=== PATIENT | female | born 1990 | race Caucasian/White ===

== ENCOUNTER 2017-01-30 10:30 | Observation (INO) | payer MEDICAID ==
[~2017-01-30] VITALS: Ht 160 cm; Wt 81.6 kg
[2017-01-30] MEDS ORDERED: FERR325T6 PO (11:20)
[2017-01-30] MEDS ORDERED: PREN1TAB78 PO (11:20)
== END 2017-01-30 11:45 | disposition home or self-care (01) ==
LOC: L&D 10:30
PROVIDERS: ADMIT Obstetrics & Gynecology Obstetrics; ATTEND Obstetrics & Gynecology
DX: O26.893 Other specified pregnancy related conditions, third trimester (principal); R10.9 Unspecified abdominal pain; Z3A.40 40 weeks gestation of pregnancy
CPT/HCPCS: 59025; 76815; 76818; G0378

== ENCOUNTER 2017-02-02 17:14 | Inpatient (IN) | payer MEDICAID ==
[~2017-02-02] VITALS: Ht 154.9 cm; Wt 80.3 kg
[~2017-02-02 17:14] MED LIST: FERR325T6 PO; PREN1TAB78 PO
[2017-02-02] MEDS ORDERED: NALOXONE HCL 0.4 MG/ML 1ML VIAL IM PRN (17:45)
[2017-02-02] MEDS ORDERED: BUTORPHANOL TARTRATE 2 MG/ML VIAL IV PRN (17:45)
[2017-02-02] MEDS ORDERED: LIDOCAINE HCL 1% 20ML VIAL (Pyxis) INJ INFIL PRN (17:45)
[2017-02-02] MEDS ORDERED: MISOPROSTOL 100MCG TABLET VG PRN (17:45)
[2017-02-02] MEDS ORDERED: METHYLERGONOVINE MALEATE 0.2 MG/ML IM PRN (17:45)
[2017-02-02 18:08] LABS: CLARITY URINE CLEAR (CLEAR); COLOR URINE YELLOW (YELLOW); GLUCOSE URINE NEGATIVE (NEGATIVE); KETONES URINE NEGATIVE (NEGATIVE); LEUKOCYTE ESTERASE URINE NEGATIVE (NEGATIVE); NITRITE URINE NEGATIVE (NEGATIVE); OCCULT BLOOD URINE TRACE (NEGATIVE); PH URINE 6.5 (4.5-8.0); PROTEIN URINE NEGATIVE (NEGATIVE); SPECIFIC GRAVITY URINE 1.006 (1.005-1.030); UROBILINOGEN URINE 0.2 E.U./dL (0.2-1.0)
[2017-02-02] MEDS: LACTATED RINGERS 1,000 ML IV SCH ×2 (18:10→18:37)
[2017-02-02 18:13] LABS: BASOPHILS % 0.3 % (0.0-2.0); EOSINOPHILS % 0.8 % (0.0-5.0); HEMATOCRIT. 35.5 % (36.0-48.0); HEMOGLOBIN. 12.2 g/dL (12.0-16.0); MEAN CORPUSCULAR HEMOGLOBIN 30.3 pg (28.0-32.0); MONOCYTES % 6.8 % (2.0-8.0); NEUTROPHILS % 70.1 % (40.0-76.0); PLATELET 163 x1000/uL (130-400); RED BLOOD CELL COUNT 4.04 mill/uL (4.2-5.4); RED CELL DISTRIBUTION WIDTH 14.3 % (11.6-14.6)
[2017-02-02 18:16] LABS: INR 0.9; PARTIAL THROMBOPLASTIN TIME 24.1 sec (23.4-31.0); PROTHROMBIN TIME 9.5 sec (9.4-11.6)
[2017-02-02 18:20] LABS: *AMPHETAMINES SCREEN URINE NEGATIVE (NEGATIVE); *BARBITURATES SCREEN URINE NEGATIVE (NEGATIVE); *BENZODIAZEPINES SCREEN URINE NEGATIVE (NEGATIVE); *COCAINE SCREEN URINE NEGATIVE (NEGATIVE); CANNABINOID URINE SCREEN NEGATIVE (NEGATIVE); METHADONE URINE SCREEN NEGATIVE (NEGATIVE); OPIATES URINE SCREEN NEGATIVE (NEGATIVE); PHENCYCLIDINE URINE SCREEN NEGATIVE (NEGATIVE)
[2017-02-02 18:47] LABS: RUBELLA IGG 206.1 IU/mL (4.99-10)
[2017-02-02 18:48] LABS: HEPATITIS B SURFACE ANTIGEN NEGATIVE
[2017-02-02] MEDS ORDERED: INFLUENZA VIRUS VACCINE 0.5ML SYR IM ONE (19:15)
[2017-02-02] MEDS: DEXT 5%/LR + PITOCIN 20UNITS/L 1,000 ML IV SCH ×2 (20:58→21:20)
[2017-02-02] MEDS ORDERED: ACETAMINOPHEN WITH CODEINE 300/30MG TABLET PO PRN (21:45)
[2017-02-02] MEDS ORDERED: DEXT 5%/LR + PITOCIN 20UNITS/L 1,000 ML IV SCH (21:45)
[2017-02-02] MEDS ORDERED: IBUPROFEN 400MG TABLET PO PRN (21:45)
[2017-02-02] MEDS ORDERED: RHO(D) IMMUNE GLOBULIN 300 MCG/SYR IM PRN (22:00)
[2017-02-02 22:50] VITALS: BP 129/76
[2017-02-03 04:00] VITALS: BP 120/70
[2017-02-03 06:42] LABS: BASOPHILS % 0.2 % (0.0-2.0); EOSINOPHILS % 0.2 % (0.0-5.0); HEMATOCRIT. 36.9 % (36.0-48.0); HEMOGLOBIN. 12.7 g/dL (12.0-16.0); MEAN CORPUSCULAR HEMOGLOBIN 30.4 pg (28.0-32.0); MEAN CORPUSCULAR VOLUME 88.2 fL (81.0-99.0); MEAN PLATELET VOLUME 9.2 fl (7.4-10.4); MONOCYTES % 6.7 % (2.0-8.0); NEUTROPHILS % 74.9 % (40.0-76.0); PLATELET 153 x1000/uL (130-400); RED BLOOD CELL COUNT 4.18 mill/uL (4.2-5.4); RED CELL DISTRIBUTION WIDTH 14.2 % (11.6-14.6)
[2017-02-03] MEDS ORDERED: FENTANYL CITRATE/PF 50MCG/ML 2ML VIAL ONE (07:16)
[2017-02-03] MEDS ORDERED: MIDAZOLAM HCL 2 MG/2 ML VIAL ONE (07:16)
[2017-02-03 07:49] VITALS: BP 117/78
[2017-02-03] MEDS ORDERED: ONDANSETRON HCL 4MG/2ML VIAL IV PRN (11:45)
[2017-02-03] MEDS ORDERED: NALOXONE HCL 0.4 MG/ML 1ML VIAL IV PRN (11:45)
[2017-02-03] MEDS ORDERED: DIPHENHYDRAMINE 50MG/ML VIAL IV PRN (11:45)
[2017-02-03 14:55] VITALS: BP 121/78
[2017-02-03 20:50] VITALS: BP 106/57
[2017-02-03] MEDS: IBUPROFEN 800MG TABLET PO PRN (21:00)
[2017-02-04] MEDS ORDERED: TETANUS, DIPHTHERIA, PERTUSSIS VAC/PF 0.5ML (>7YR OLD) IM ONE (00:42)
[2017-02-04 07:56] VITALS: BP 108/72
[2017-02-04] MEDS: IBUPROFEN 800MG TABLET PO PRN (09:17)
== END 2017-02-04 13:48 | disposition home or self-care (01) | DRG 541 ==
LOC: L&D 17:14 → OBSVTOIN 20:50 → 7EST PP/OB 23:46
PROVIDERS: ADMIT Obstetrics & Gynecology; ATTEND Obstetrics & Gynecology
PROC: 10E0XZZ Delivery of Products of Conception, External Approach (ICD-10-PCS; principal; 2017-02-02 20:15)
PROC: 0UB70ZZ Excision of Bilateral Fallopian Tubes, Open Approach (ICD-10-PCS; 2017-02-03)
DX: O80 Encounter for full-term uncomplicated delivery (principal); Z23 Encounter for immunization; Z30.2 Encounter for sterilization; Z3A.41 41 weeks gestation of pregnancy; Z37.0 Single live birth
CPT/HCPCS: 36415; 80305; 81001; 85025; 85610; 85730; 86592; 86703; 86762; 86850; 86900; 87340; 88302; 90715; 99281; G0378; J0595; J2210; J2250; J2310; J2590; J3010; J7120